=== PATIENT | female | born 1955 | race Caucasian/White ===

== ENCOUNTER 2018-01-13 08:58 | Day surgery (SDC) | payer MEDICARE, OTHER ==
[~2018-01-13 08:58] MED LIST: KETOROLAC TROMETHAMINE 0.45% 4 DROP/0.4 ML DROPERETTE OD PRN
[2018-01-13] MEDS: CYCLOPENTOLATE 0.2%/PHENYLEPHRINE 1% OPH SOLN 2 ML OD PRN ×3 (09:41→09:56)
[2018-01-13] MEDS: TETRACAINE HCL 0.5% OPH SOLN 0.6 ML DROPERETTE OD PRN ×3 (09:41→10:15)
[2018-01-13] MEDS: TROPICAMIDE 1% OPH SOLN 3 ML OD PRN ×3 (09:41→09:56)
[2018-01-13] MEDS: BESIFLOXACIN HCL 0.6% OPH SUSP 5 ML BOTTLE OD PRN ×4 (09:41→10:39)
[2018-01-13] MEDS ORDERED: FENTANYL CITRATE INJ/PF 100 MCG/2 ML AMPUL ONE ×2 (09:56→10:16)
[2018-01-13] MEDS ORDERED: MIDAZOLAM 2 MG/2 ML INJ ONE (09:56)
[2018-01-13] MEDS: EPINEPHRINE INJ/PF 1 MG/1 ML AMPULE ONE ×2 (10:28)
[2018-01-13] MEDS: LIDOCAINE 1% INJ-PF (10 MG/ML) 30 ML SDV ONE ×2 (10:29)
[2018-01-13] MEDS: CHONDR SU A NA/HYALUR INTRAOC KIT (SURGICARE) ONE ×2 (10:30)
[2018-01-13] MEDS: TOBRAMYCIN SULFATE/DEXAMETH OPH OINTMENT 3.5 GM ONE ×2 (10:39)
== END 2018-01-13 11:22 | disposition home or self-care (01) ==
LOC: SC 08:58
PROVIDERS: ATTEND Ophthalmology
DX: H25.11 Age-related nuclear cataract, right eye (principal); J44.9 Chronic obstructive pulmonary disease, unspecified; I10 Essential (primary) hypertension; E78.00 Pure hypercholesterolemia, unspecified; K21.9 Gastro-esophageal reflux disease without esophagitis; G47.30 Sleep apnea, unspecified; M35.00 Sjogren syndrome, unspecified; Z79.51 Long term (current) use of inhaled steroids; Z79.899 Other long term (current) drug therapy; Z88.0 Allergy status to penicillin; Z88.1 Allergy status to other antibiotic agents; Z88.5 Allergy status to narcotic agent; Z87.891 Personal history of nicotine dependence
CPT/HCPCS: 66984; V2630; J2250; J3490 ×3; A9270; J0171; J3010; 142

== ENCOUNTER 2018-01-27 10:53 | Day surgery (SDC) | payer MEDICARE, OTHER ==
[~2018-01-27 10:53] MED LIST changes: +CHONDR SU A NA/HYALUR INTRAOC KIT (SURGICARE) ONE; +EPINEPHRINE INJ/PF 1 MG/1 ML AMPULE ONE; -KETOROLAC TROMETHAMINE 0.45% 4 DROP/0.4 ML DROPERETTE OD PRN; +KETOROLAC TROMETHAMINE 0.45% 4 DROP/0.4 ML DROPERETTE OS PRN; +LIDOCAINE 1% INJ-PF (10 MG/ML) 30 ML SDV ONE; +TOBRAMYCIN SULFATE/DEXAMETH OPH OINTMENT 3.5 GM ONE
[2018-01-27] MEDS ORDERED: MIDAZOLAM 2 MG/2 ML INJ ONE (11:01)
[2018-01-27] MEDS: TETRACAINE HCL 0.5% OPH SOLN 0.6 ML DROPERETTE OS PRN ×3 (11:20→12:02)
[2018-01-27] MEDS: TROPICAMIDE 1% OPH SOLN 3 ML OS PRN ×3 (11:21→11:40)
[2018-01-27] MEDS: CYCLOPENTOLATE 0.2%/PHENYLEPHRINE 1% OPH SOLN 2 ML OS PRN ×3 (11:21→11:40)
[2018-01-27] MEDS: BESIFLOXACIN HCL 0.6% OPH SUSP 5 ML BOTTLE OS PRN ×3 (11:21→12:18)
== END 2018-01-27 13:10 | disposition home or self-care (01) ==
LOC: SC 10:53
PROVIDERS: ATTEND Ophthalmology
DX: H25.12 Age-related nuclear cataract, left eye (principal); Z98.41 Cataract extraction status, right eye; J44.9 Chronic obstructive pulmonary disease, unspecified; I10 Essential (primary) hypertension; E78.00 Pure hypercholesterolemia, unspecified; K21.9 Gastro-esophageal reflux disease without esophagitis; Z79.51 Long term (current) use of inhaled steroids; Z79.899 Other long term (current) drug therapy; Z88.8 Allergy status to other drugs, medicaments and biological substances; Z88.0 Allergy status to penicillin; Z88.5 Allergy status to narcotic agent
CPT/HCPCS: 66984; V2630; J2250; J3490 ×3; A9270; J0171; 142

== ENCOUNTER → 2018-05-04 | Outpatient (CLI) | payer MEDICARE, OTHER ==
--- NOTE | 2018-05-04 15:29 | RADIOLOGY REPORT (SQ) ---
EXAM DESCRIPTION: MRI LT UPPER JOINT WITHOUT COMPLETED DATE/TIME: 05/04/2018 2:34 pm REASON FOR STUDY: PAIN IN LEFT SHOULDER (M25.512) M25.512 PAIN IN LEFT SHOULDER COMPARISON: None. TECHNIQUE: Left shoulder images acquired and stored on PACS. Multiplanar imaging to include fat sens itive sequences such as T1, water sensitive sequences such as FST2/STIR, cartilage sensitive sequence s such as FSPD/gradient-echo sequences. LIMITATIONS: None. FINDINGS: BONE MARROW AND CORTEX: No worrisome bone lesions or marrow replacement. No occult fractur es. JOINT OR BURSAL EFFUSION: Small amount of fluid in the subcoracoid bursa. GLENO-HUMERAL ARTICULATION: Cartilage loss. Subchondral cyst formation inferior glenoid. ACROMION AND AC JOINT: Type 2 acromion. Mild -moderate AC joint arthropathy. ROTATOR CUFF AND INTERVAL: Cuff musculature is symmetric. Partial thickness bursal surface tear of t he anterior supraspinatus. Peritendinitis infraspinatus. No rotator interval tear. No rotator interval thickening to suggest adhesive capsulitis. LABRUM AND BICEPS LABRAL COMPLEX: Fraying of the superior labrum. Distal biceps intact. REMAINDER OF LABRUM AND IGHL : Intact. PERIARTICULAR AND ADJACENT SOFT TISSUES: No masses or abnormal nodes. OTHER: No other significant finding. IMPRESSION: 1. Cuff tendinosis. Partial-thickness bursal surface tear of the supraspinatus. 2. AC and glenohumeral joint arthropathy. 3. Small amount of fluid in the subcoracoid bursa TECHNICAL DOCUMENTATION: JOB ID: [id number] [employer]- All Rights Reserved Reading location - IP/workstation name: [email or web address]
== END ==
LOC: RAD 13:43
PROVIDERS: ATTEND Physician Assistant
DX: M25.512 Pain in left shoulder (principal); M75.112 Incomplete rotator cuff tear or rupture of left shoulder, not specified as traumatic; M12.812 Other specific arthropathies, not elsewhere classified, left shoulder

== ENCOUNTER → 2018-05-25 | Outpatient (CLI) | payer MEDICARE, OTHER ==
--- NOTE | 2018-05-25 13:23 | RADIOLOGY REPORT (SQ) ---
EXAM DESCRIPTION: MRI CERVICAL SPINE WITHOUT COMPLETED DATE/TIME: 05/25/2018 1:05 pm REASON FOR STUDY: RADICULOPATHY, CERVICAL M54.12 RADICULOPATHY, CERVICAL REGION M54.16 RADICULOPAT HY, LUMBAR REGION COMPARISON: Cervical spine plain films 11/09/2007, 03/06/2013 MRI cervical spine 03/04/2016 TECHNIQUE: Sagittal and Axial imaging includes T1, T2, STIR and gradient echo sequences. LIMITATIONS: None. FINDINGS: ALIGNMENT: Convex leftward lower cervical/upper thoracic curvature VERTEBRAE: Intact. BONE MARROW: Normal. No marrow replacement or reactive changes. DISCS: Diffuse decreased T2 weighted intervertebral disc signal. Disc space loss of height at C3-4 a nd C6-7 HARDWARE: None in the spine. CORD AND BASE OF BRAIN: Normal in size and signal intensity. SOFT TISSUES: No soft tissue masses. C1-C2: No significant spinal stenosis. C2-C3: No central canal or right foraminal narrowing. Moderate left foraminal narrowing from facet a nd uncovertebral hypertrophy. C3-C4: Broad diffuse posterior disc bulge and bony spurring effaces the ventral thecal sac and abuts the ventral cord without cord flattening or abnormal intrinsic cord signal. Mild central canal steno sis. Mild right foraminal narrowing, high-grade left foraminal narrowing from facet and uncovertebra l hypertrophy C4-C5: Minimal posterior disc bulge and bony spurring. No central or right foraminal narrowing. Mod erate left foraminal stenosis from facet arthropathy. C5-C6: Broad diffuse posterior disc bulge and bony spurring is present effacing the ventral thecal sa c and abutting the ventral cord without cord flattening or abnormal intrinsic cord signal. Borderlin e central canal narrowing. Mild to moderate right, high-grade left foraminal narrowing from facet an d uncovertebral hypertrophy. . C6-C7: Broad diffuse posterior disc bulge and bony spurring effaces the ventral thecal sac and abuts the ventral cord without definite cord flattening. Mild central canal narrowing. No right foraminal stenosis. High-grade left foraminal stenosis from facet and uncovertebral hypertrophy C7-T1: No significant central canal or bilateral foraminal narrowing UPPER THORACIC: Incompletely imaged. No significant spinal stenosis or exit foraminal stenosis. OTHER: No other significant finding. IMPRESSION: Multilevel significant central and foraminal stenosis TECHNICAL DOCUMENTATION: JOB ID: [id number] [employer]- All Rights Reserved Reading location - IP/workstation name: [email or web address]
--- NOTE | 2018-05-25 13:41 | RADIOLOGY REPORT (SQ) ---
EXAM DESCRIPTION: MRI LUMBAR SPINE WITHOUT COMPLETED DATE/TIME: 05/25/2018 1:05 pm REASON FOR STUDY: RADICULOPATHY, LUMBAR M54.12 RADICULOPATHY, CERVICAL REGION M54.16 RADICULOPATHY , LUMBAR REGION COMPARISON: [facility] 09/03/2015 TECHNIQUE: Sagittal and Axial imaging includes T1, T2, STIR and gradient echo sequences. Coronal T2/ HASTE imaging. LIMITATIONS: There is artifact at the L1 level related to anchors for Ozuna rods. This causes local ferromagnetic distortion FINDINGS: VISUALIZED UPPER ABDOMEN: Limited evaluation. No acute or suspicious findings suggested. SEGMENTATION: No transitional anatomy. The lowest well-developed disc space is labeled L5-S1. ALIGNMENT: Convex leftward lumbar curvature. Minimal grade 1 anterolisthesis VERTEBRAE: Intact. BONE MARROW: Normal. No marrow replacement or reactive changes. DISC SIGNAL: Diffuse decreased T2 weighted intervertebral disc signal. POSTERIOR ELEMENTS: Bilateral L5 spondylolysis. Multilevel fusion with bone grafting down to the L2 -3 level along the posterior elements. HARDWARE: Ozuna rods with anchors over the L1 level CORD AND CONUS: Conus in the region of metallic artifact, at about the L1 level SOFT TISSUES: No aortic aneurysm seen. No bulky retroperitoneal adenopathy or mass. No paraspinal mas s or fluid. L1-L2: No significant spinal stenosis or exit foraminal stenosis. Bone graft material along the face t joints. L2-L3: No significant spinal stenosis or exit foraminal stenosis. Bone graft material along the post erior elements. L3-L4: Mild diffuse posterior disc bulging, mild bilateral facet and ligament hypertrophy. Borderlin e central canal narrowing. Mild bilateral inferior foraminal narrowing without exiting L3 nerve root impingement. L4-L5: Minimal posterior disc bulging, mild bilateral facet hypertrophy. No central or foraminal enc roachment. L5-S1: Grade 1 anterolisthesis related to bilateral spondylolysis. Bilateral facet hypertrophy. No central or foraminal stenosis. SACRUM: Visualized upper sacrum intact. OTHER: No other significant findings. IMPRESSION: No high-grade central or foraminal encroachment. TECHNICAL DOCUMENTATION: JOB ID: [id number]- All Rights Reserved Reading location - IP/workstation name: [email or web address]
== END ==
LOC: RAD 11:33
PROVIDERS: ATTEND Family Medicine
DX: M54.12 Radiculopathy, cervical region (principal); M54.16 Radiculopathy, lumbar region; M48.02 Spinal stenosis, cervical region
CPT/HCPCS: 72141; 72148

== ENCOUNTER 2018-07-30 20:10 | Emergency (ER) | payer MEDICARE, OTHER ==
--- NOTE | 2018-07-30 21:00 | ER Document Report ---
ED Medical Screen (RME) - General Chief Complaint: Groin Pain Stated Complaint: GROIN PAIN Time Seen by Provider: 07/30/18 20:55 Primary Care Provider: ARNEL ALCANTARA DO [Primary Care Provider] - Follow up as needed Mode of Arrival: Ambulatory Information source: Patient Notes: 62-year-old female presented to ED for complaint of left groin pain going down her left leg. She states that she had this pain off and on for about a month. She states she saw her primary care doctor Nimo ordonez about 2 weeks ago and was told that she had a left inguinal hernia as well as a kidney stone. She states she had a lot of blood in her urine at that time. She states is not blood in her urine now and she thinks she passed the stone. She states she is on Vicodin at home and took some Vicodin at 6:00pm and now her pain is better. Nimo Ordonez told her that the next time she had pain in this area to come to the emergency room to get evaluated. Patient is alert oriented respirations regular and unlabored speaking in full sentences walks with a even steady gait. I have greeted and performed a rapid initial assessment of this patient. A comprehensive ED assessment and evaluation of the patient, analysis of test results and completion of medical decision making process will be conducted by an additional ED providers. TRAVEL OUTSIDE OF THE [place] IN LAST 30 DAYS: No - Related Data Allergies/Adverse Reactions: clarithromycin [From Biaxin] Allergy (Severe, Verified 01/27/18 11:24) rash clindamycin [Clindamycin] Allergy (Severe, Verified 01/27/18 11:24) chest pain, sob latex [Latex] Allergy (Severe, Verified 01/27/18 11:24) rash meloxicam [Meloxicam] Allergy (Severe, Verified 01/27/18 11:24) sob, aches oxycodone HCl [From Percocet] Allergy (Severe, Verified 01/27/18 11:24) n and v Penicillins Allergy (Severe, Verified 01/27/18 11:24) rash prednisone [Prednisone] Allergy (Severe, Verified 01/27/18 11:24) achy, dry mouth sulfamethoxazole [From Bactrim] Allergy (Severe, Verified 01/27/18 11:24) aches, sob tetracycline [Tetracycline] Allergy (Severe, Verified 01/27/18 11:24) rash tramadol [Tramadol] Allergy (Severe, Verified 01/27/18 11:24) hives, itching trimethoprim [From Bactrim] Allergy (Severe, Verified 01/27/18 11:24) aches, sob Sulfa (Sulfonamide Antibiotics) Allergy (Verified 01/27/18 11:24) topiramate [From Topamax] Adverse Reaction (Severe, Verified 01/27/18 11:24) irritable Past Medical History - Past Medical History Cardiac Medical History: Reports: Hx Hypercholesterolemia, Hx Hypertension Denies: Hx Coronary Artery Disease, Hx Heart Attack Pulmonary Medical History: Reports: Hx COPD Denies: Hx Asthma, Hx Bronchitis, Hx Pneumonia Neurological Medical History: Denies: Hx Cerebrovascular Accident, Hx Seizures GI Medical History: Reports: Hx Hiatal Hernia. Denies: Hx Hepatitis, Hx Ulcer Musculoskeltal Medical History: Reports Hx Arthritis Psychiatric Medical History: Reports: Hx Depression Infectious Medical History: Denies: Hx Hepatitis Past Surgical History: Reports: Hx Orthopedic Surgery, Hx Tonsillectomy, Hx Tubal Ligation. Denies: Hx Hysterectomy, Hx Mastectomy, Hx Open Heart Surgery, Hx Pacemaker - Immunizations Hx Diphtheria, Pertussis, Tetanus Vaccination: Yes Physical Exam - Vital signs Vitals: Temp Pulse Resp BP Pulse Ox 99.1 F 72 14 171/103 H 92 07/30/18 20:43 07/30/18 20:43 07/30/18 20:43 07/30/18 20:43 07/30/18 20:43 Course - Vital Signs Vital signs: Temp Pulse Resp BP Pulse Ox 99.1 F 72 14 171/103 H 92 07/30/18 20:43 07/30/18 20:43 07/30/18 20:43 07/30/18 20:43 07/30/18 20:43 Doctor's Discharge - Discharge Referrals: ARNEL ALCANTARA DO [Primary Care Provider] - Follow up as needed
[2018-07-30 21:28] LABS: APPEARANCE,URINE CLEAR; BILIRUBIN,URINE NEGATIVE (NEGATIVE); COLOR,URINE STRAW; GLUCOSE, URINE NEGATIVE (NEGATIVE); KETONES,URINE NEGATIVE (NEGATIVE); LEUKOCYTE ESTERASE,URINE NEGATIVE (NEGATIVE); NITRITE,URINE NEGATIVE (NEGATIVE); PROTEIN,URINE NEGATIVE (NEGATIVE); URINE SPECIFIC GRAVITY 1.005; UROBILINOGEN,URINE NEGATIVE mg/dL (<2.0)
--- NOTE | 2018-07-30 22:27 | RADIOLOGY REPORT (SQ) ---
US PELVIS HISTORY: Left groin pain with history of inguinal hernia. COMPARISON: None. TECHNIQUE: Grayscale, color Doppler, and spectral Doppler ultrasound images of the pelvis were obtained. FINDINGS: Limited images through the left groin demonstrate no inguinal hernia. Surrounding soft tissue tissues are unremarkable. IMPRESSION: No evidence of left-sided hernia at the time of scanning.
--- NOTE | 2018-07-31 00:38 | ER Document Report ---
ED General - General Chief Complaint: Groin Pain Stated Complaint: GROIN PAIN Time Seen by Provider: 07/30/18 20:55 Primary Care Provider: ARNEL ALCANTARA DO [ACTIVE STAFF] - Follow up as needed Mode of Arrival: Ambulatory Notes: Patient is a 62-year-old female who presents the emergency department with left lower quadrant pain. Patient reports she has a history of a left-sided inguinal hernia that has been recently evaluated by her primary care physician. The hernia is typically reducible. She states that this afternoon she had an episode of pain lasting a couple of hours her primary care told her to come to the emergency room to have a ultrasound done. Patient currently denies any pain, states she took a tablet of hydrocodone just prior to arrival. Patient denies any other symptoms to include fever, nausea, vomiting or diarrhea. Patient states she has an appointment on 08/10/[address] Kellogg for a preop appointment for this hernia. TRAVEL OUTSIDE OF THE [place] IN LAST 30 DAYS: No - Related Data Allergies/Adverse Reactions: clarithromycin [From Biaxin] Allergy (Severe, Verified 01/27/18 11:24) rash clindamycin [Clindamycin] Allergy (Severe, Verified 01/27/18 11:24) chest pain, sob latex [Latex] Allergy (Severe, Verified 01/27/18 11:24) rash meloxicam [Meloxicam] Allergy (Severe, Verified 01/27/18 11:24) sob, aches oxycodone HCl [From Percocet] Allergy (Severe, Verified 01/27/18 11:24) n and v Penicillins Allergy (Severe, Verified 01/27/18 11:24) rash prednisone [Prednisone] Allergy (Severe, Verified 01/27/18 11:24) achy, dry mouth sulfamethoxazole [From Bactrim] Allergy (Severe, Verified 01/27/18 11:24) aches, sob tetracycline [Tetracycline] Allergy (Severe, Verified 01/27/18 11:24) rash tramadol [Tramadol] Allergy (Severe, Verified 01/27/18 11:24) hives, itching trimethoprim [From Bactrim] Allergy (Severe, Verified 01/27/18 11:24) aches, sob Sulfa (Sulfonamide Antibiotics) Allergy (Verified 01/27/18 11:24) topiramate [From Topamax] Adverse Reaction (Severe, Verified 01/27/18 11:24) irritable Past Medical History - General Information source: Patient - Social History Smoking Status: Never Smoker Frequency of alcohol use: None Drug Abuse: None Family History: Reviewed & Not Pertinent Patient has suicidal ideation: No Patient has homicidal ideation: No - Past Medical History Cardiac Medical History: Reports: Hx Hypercholesterolemia, Hx Hypertension Denies: Hx Coronary Artery Disease, Hx Heart Attack Pulmonary Medical History: Reports: Hx COPD Denies: Hx Asthma, Hx Bronchitis, Hx Pneumonia Neurological Medical History: Denies: Hx Cerebrovascular Accident, Hx Seizures Renal/ Medical History: Reports: Hx Kidney Stones. Denies: Hx Peritoneal Dialysis GI Medical History: Reports: Hx Hiatal Hernia. Denies: Hx Hepatitis, Hx Ulcer Musculoskeletal Medical History: Reports Hx Arthritis Psychiatric Medical History: Reports: Hx Depression Infectious Medical History: Denies: Hx Hepatitis Past Surgical History: Reports: Hx Orthopedic Surgery, Hx Tonsillectomy, Hx Tubal Ligation. Denies: Hx Hysterectomy, Hx Mastectomy, Hx Open Heart Surgery, Hx Pacemaker - Immunizations Hx Diphtheria, Pertussis, Tetanus Vaccination: Yes Review of Systems - Review of Systems Constitutional: No symptoms reported EENT: No symptoms reported Cardiovascular: No symptoms reported Respiratory: No symptoms reported Gastrointestinal: Abdominal pain - Low abdominal pain, now resolved Genitourinary: No symptoms reported Female Genitourinary: No symptoms reported Musculoskeletal: No symptoms reported Skin: No symptoms reported Hematologic/Lymphatic: No symptoms reported Neurological/Psychological: No symptoms reported Physical Exam - Vital signs Vitals: Temp Pulse Resp BP Pulse Ox 99.1 F 72 14 171/103 H 92 07/30/18 20:43 07/30/18 20:43 07/30/18 20:43 07/30/18 20:43 07/30/18 20:43 - Notes Notes: PHYSICAL EXAMINATION: GENERAL: Well-appearing, well-nourished and in no acute distress. HEAD: Atraumatic, normocephalic. EYES: Pupils equal round and reactive to light, extraocular movements intact, conjunctiva are normal. ENT: Nares patent, oropharynx clear without exudates. Moist mucous membranes. NECK: Normal range of motion, supple without lymphadenopathy LUNGS: Breath sounds clear to auscultation bilaterally and equal. No wheezes rales or rhonchi. HEART: Regular rate and rhythm without murmurs ABDOMEN: Soft, nontender, nondistended abdomen. No guarding, no rebound. No masses appreciated. Female : Mild suprapubic tenderness, no obvious hernia palpated. Musculoskeletal: Normal range of motion, no pitting or edema. No cyanosis. NEUROLOGICAL: Cranial nerves grossly intact. Normal speech, normal gait. Normal sensory, motor exams PSYCH: Normal mood, normal affect. SKIN: Warm, Dry, normal turgor, no rashes or lesions noted. Course - Re-evaluation Re-evalutation: 07/31/18 00:36 No hernia noted on the ultrasound. No palpable hernia on physical examination. Patient appears well, nontoxic and is in no acute distress. Patient denies any pain currently. Discussed strict ED return precautions with the patient and provided education regarding hernias including incarceration of hernias. Patient verbalizes understanding and states that her primary care doctor went over the same items with her. - Vital Signs Vital signs: Temp Pulse Resp BP Pulse Ox 97.8 F 69 17 175/98 H 96 07/31/18 00:48 07/31/18 00:48 07/31/18 00:48 07/31/18 00:48 07/31/18 00:48 - Laboratory Laboratory results interpreted by me: 07/30/18 21:05 Urine Blood SMALL H Discharge - Discharge Clinical Impression: Hernia Condition: Stable Disposition: HOME, SELF-CARE Additional Instructions: Your workup today was reassuring. There was no evidence that your hernia was "incarcerated". Please continue to follow-up with your primary care doctor and keep the outpatient surgical appointment you have set up with Dr. Kellogg. Return to the emergency department if you have worsening abdominal pain or your hernia "pops out again" and does not go back in. We will be happy to reevaluate you at any time. Referrals: ARNEL ALCANTARA DO [ACTIVE STAFF] - Follow up as needed
[2018-07-31 00:52] VITALS: BP 175/98
== END 2018-07-31 00:52 | disposition home or self-care (01) ==
LOC: ER 20:10
DX: K46.9 Unspecified abdominal hernia without obstruction or gangrene (principal); R10.30 Lower abdominal pain, unspecified; Z88.3 Allergy status to other anti-infective agents; Z91.040 Latex allergy status; Z88.0 Allergy status to penicillin; Z88.6 Allergy status to analgesic agent
CPT/HCPCS: 76857; 81001; 99284

== ENCOUNTER → 2019-03-07 | Outpatient (CLI) | payer MEDICARE, OTHER ==
--- NOTE | 2019-03-07 10:31 | RADIOLOGY REPORT (SQ) ---
EXAM DESCRIPTION: CERV SP 3 VIEW OR LESS COMPLETED DATE/TIME: 03/07/2019 10:16 am REASON FOR STUDY: CERVICAL RADICULAPOTHY COMPARISON: 01/27/2019 TECHNIQUE: Lateral flexion and extension radiographs of the spine. NUMBER OF VIEWS: Two views. LIMITATIONS: None. FINDINGS: Normal alignment, maintained throughout flexion and extension. No abnormal motion. OTHER: Prior anterior fusion from C3 through C7. IMPRESSION: NO RADIOGRAPHIC EVIDENCE OF ABNORMAL MOTION. TECHNICAL DOCUMENTATION: JOB ID: [id number] [employer]- All Rights Reserved Reading location - IP/workstation name: [email or web address]
== END ==
LOC: RAD 09:58
PROVIDERS: ATTEND Specialist
DX: M54.12 Radiculopathy, cervical region (principal)
CPT/HCPCS: 72040

== ENCOUNTER → 2019-03-24 | Outpatient (CLI) | payer MEDICARE, OTHER ==
--- NOTE | 2019-03-24 17:03 | RADIOLOGY REPORT (SQ) ---
EXAM DESCRIPTION: CAROTID DOPPLER COMPLETED DATE/TIME: 03/24/2019 2:03 pm REASON FOR STUDY: DIZZINESS R42 DIZZINESS AND GIDDINESS COMPARISON: Cervical spine films 03/07/2019, 01/27/2019 MRI cervical spine 05/25/2018 TECHNIQUE: Grayscale ultrasound, Doppler velocity and spectra, and color Doppler images acquired of the extra-cranial carotid and vertebral arteries. Images stored on PACS. LIMITATIONS: None. FINDINGS: RIGHT CAROTID CCA Velocities: Within normal limits. Right common carotid artery peak systolic velocity 1.1 m/sec ICA Velocities Peak systolic 0.7 m/s. End diastolic 0.14 m/s. Proximal ICA/CCA peak systolic ratio normal. Spectra normal. No significant plaque. LEFT CAROTID CCA Velocities: Within normal limits. Left common carotid artery peak systolic velocity 0.9 m/sec ICA Velocities Peak systolic 0.55 m/s. End diastolic 0.23 m/s. Proximal ICA/CCA peak systolic ratio normal. Spectra normal. No significant plaque. VERTEBRAL ARTERIES: Antegrade flow. Normal waveforms. SUBCLAVIAN ARTERIES: Not evaluated OTHER: No other significant finding. IMPRESSION: NO HEMODYNAMICALLY SIGNIFICANT STENOSIS. COMMENT: Quality ID #195: Velocity criteria are extrapolated from the diameter data as defined by t he Society of Radiologists in Ultrasound Consensus Conference. Radiology 2003: 229; 340-346. TECHNICAL DOCUMENTATION: JOB ID: [id number] [employer]- All Rights Reserved Reading location - IP/workstation name: [email or web address]
== END ==
LOC: SP 10:29
PROVIDERS: ATTEND Physician Assistant
DX: R42 Dizziness and giddiness (principal)
CPT/HCPCS: 93880

== ENCOUNTER → 2020-04-16 | Outpatient (CLI) | payer MEDICARE, OTHER ==
--- NOTE | 2020-04-16 09:41 | RADIOLOGY REPORT (SQ) ---
EXAM DESCRIPTION: CT CHEST WITHOUT IMAGES COMPLETED DATE/TIME: 04/16/2020 8:53 am REASON FOR STUDY: R91.1 SOLITARY PULMONARY NODULE R91.1 SOLITARY PULMONARY NODULE COMPARISON: 12/16/2012 TECHNIQUE: CT scan performed of the chest without intravenous contrast. Images reviewed with lung, soft tissue and bone windows. Reconstructed coronal and sagittal MPR images reviewed. All images st ored on PACS. All CT scanners at this facility use dose modulation, iterative reconstruction, and/or weight based d osing when appropriate to reduce radiation dose to as low as reasonably achievable (ALARA). [facility]: Dose Right [facility]: CareDose [facility]: Dose Right [facility]: Teradose 4D [facility]: [email or web address] RADIATION DOSE: CT Rad equipment meets quality standard of care and radiation dose reduction techniq ues were employed. CTDIvol: 7.9 mGy. DLP: 317 mGy-cm. mGy. LIMITATIONS: No technical limitations. FINDINGS: LUNGS AND PLEURA: Minimal biapical scarring. 5 mm subpleural nodule long medial right upp er lobe (Series 4, image 32), stable compared to 2013. Additional nodular opacity along the major fi ssure (series 4, image 34), likely perifissural lymph node and also stable. No additional discrete n odules or masses. No focal airspace disease. No pleural effusion or pneumothorax. HILAR AND MEDIASTINAL STRUCTURES: No identified masses or abnormal nodes. No obvious aneurysm. HEART AND VASCULAR STRUCTURES: No aneurysm. No pericardial effusion. UPPER ABDOMEN: No significant findings. Limited exam. THYROID AND OTHER SOFT TISSUES: No masses. No adenopathy. BONES: No acute bony abnormality. Significant serpiginous thoracic spinal curvature with multilevel fusion and posterior fusion hardware. Partially visualized cervical fusion hardware. Decreased osse ous mineralization. HARDWARE: None in the chest. OTHER: No other significant findings. IMPRESSION: 1. No evidence of acute intrathoracic process. 2. No suspicious nodules or masses. Stable few sub 6 mm nodular opacities compared to 2013. No fol low-up required. TECHNICAL DOCUMENTATION: JOB ID: [id number] Quality ID # [id number]: Final reports with documentation of one or more dose reduction techniques (e.g., Au tomated exposure control, adjustment of the mA and/or kV according to patient size, use of iterative reconstruction technique) 2010 [employer]- All Rights Reserved Reading location - IP/workstation name: [email or web address]
== END ==
LOC: RAD 08:26
PROVIDERS: ATTEND Internal Medicine Critical Care Medicine
DX: R91.1 Solitary pulmonary nodule (principal); J43.9 Emphysema, unspecified
CPT/HCPCS: 71250

== ENCOUNTER → 2020-05-07 | Outpatient (CLI) | payer MEDICARE ==
--- NOTE | 2020-05-07 15:25 | WOMENS IMAGING REPORT ---
EXAM DESCRIPTION: 3D SCREENING MAMMO BILAT IMAGES COMPLETED DATE/TIME: 05/07/2020 1:45 pm REASON FOR STUDY: Z12.31 ENCOUNTER FOR SCREENING MAMMOGRAM FOR MALIGNANT NEOPLASM OF BREAST Z12.31 ENCNTR SCREEN MAMMOGRAM FOR MALIGNANT NEOPLASM OF AYLIN COMPARISON: 07/28/2013 EXAM PARAMETERS: Standard craniocaudal and mediolateral oblique views of each breast recorded using digital acquisition and breast tomosynthesis. Read with the assistance of CAD. .[facility] - R2 Rod Tape Operator Version 9.2 LIMITATIONS: None. FINDINGS: RIGHT BREAST MASSES: No suspicious masses. CALCIFICATIONS: No new or suspicious calcifications. ARCHITECTURAL DISTORTION: None. ASYMMETRY: None noted. OTHER: No other significant findings. LEFT BREAST MASSES: There is a 3 mm mass in the slight medial inferior left breast, approximately 7 o'clock posit ion 1 cm from the nipple. CALCIFICATIONS: No new or suspicious calcifications. ARCHITECTURAL DISTORTION: None. ASYMMETRY: None noted. OTHER: No other significant findings. IMPRESSION: 3 mm mass medial inferior left breast. Further evaluation with left breast ultrasound r ecommended. 0 Incomplete: Needs Additional Imaging Evaluation and/or prior Mammograms for Comparison. BREAST DENSITY: c. The breasts are heterogeneously dense, which may obscure small masses. BIRAD: ASSESSMENT: 0 Incomplete: Needs Additional Imaging Evaluation and/or prior Mammograms for C omparison. RECOMMENDATION: RECOMMENDED FOLLOW-UP: Left breast ultrasound. The patient will be contacted for additional imaging. COMMENT: The patient has been notified of the results by letter per MQSA requirements. Additional no tification policies are in place for contacting patient with suspicious or incomplete findings. Quality ID #225: The [employer] recommends an annual screening mammogram for women aged 40 years or over. This facility utilizes a reminder system to ensure that all patients receive reminder letters, and/or direct phone calls for appointments. This includes reminders for routine scr eening mammograms, diagnostic mammograms, or other Breast Imaging Interventions when appropriate. Th is patient will be placed in the appropriate reminder system. TECHNICAL DOCUMENTATION: FINDING NUMBER: (1) ASSESSMENT: (1) JOB ID: [id number] 2010 [employer]- All Rights Reserved Reading location - IP/workstation name: [email or web address]
== END ==
LOC: WI 14:30
PROVIDERS: ATTEND Physician Assistant
DX: Z12.31 Encounter for screening mammogram for malignant neoplasm of breast (principal); N63.24 Unspecified lump in the left breast, lower inner quadrant
CPT/HCPCS: 77063; 77067

== ENCOUNTER → 2020-05-18 | Outpatient (CLI) | payer MEDICARE ==
--- NOTE | 2020-05-18 15:25 | WOMENS IMAGING REPORT ---
EXAM DESCRIPTION: U/S BREAST UNILAT LIMITED IMAGES COMPLETED DATE/TIME: 05/18/2020 1:03 pm REASON FOR STUDY: N63.0 UNSPECIFIED LUMP IN UNSPECIFIED BREAST N63.0 UNSPECIFIED LUMP IN UNSPECIFIE D BREAST COMPARISON: Mammograms, most recently 05/07/2020. TECHNIQUE: Real-time and static grayscale imaging performed of the left breast targeted to the area of clinical/mammographic concern. Selected color Doppler images recorded. LIMITATIONS: None. FINDINGS: MASS: At 7- 8 o'clock less than 2 cm from the nipple is a 3 mm oval well-circumscribed ane choic mass consistent with a tiny uncomplicated cyst. OTHER: No other significant finding. IMPRESSION: Tiny simple cyst in the region of interest. No suspicious features or findings. BIRAD: 2 Benign findings. RECOMMENDATION: RECOMMENDED FOLLOW-UP: Continue annual screening routine bilateral mammography. COMMENT: The [employer] ([employer]) has developed recommendations for screening MRI of the breasts in certain patient populations, to be used in conjunction with mammography. Breast MRI s urveillance may be appropriate for women with more than 20% lifetime risk of developing breast cancer as determined by genetic testing, significant family history of the disease, or history of mantle r adiation for Hodgkins Disease. [employer] Practice Guidelines 2008. TECHNICAL DOCUMENTATION: JOB ID: [id number] 2010 [employer]- All Rights Reserved Reading location - IP/workstation name: [email or web address]
== END ==
LOC: WI 12:30
PROVIDERS: ATTEND Physician Assistant
DX: N60.02 Solitary cyst of left breast (principal)
CPT/HCPCS: 76642